=== PATIENT | female | born 1975 | race Hispanic/Latino ===

== ENCOUNTER 2020-04-10 13:29 | Outpatient (CLI) | payer OTHER ==
--- NOTE | 2020-04-10 15:18 | MRI ---
Exam: MRI cervical spine without contrast HISTORY: Cervical radiculopathy. Left shoulder pain for years. Associated tingling and numbness. . COMPARISON: None FINDINGS: Note is made of a partially empty sella. Visualized brain parenchyma, cervicomedullary junction, cervical cord and the upper thoracic cord are normal size and signal intensity. Appropriate T1 marrow signal intensity of the cervical vertebra. Cervical spine vertebral body height is maintained. No fracture. There is straightening of normal cervical lordosis. There is no significant STIR hyperintensity to suggest vertebral body edema or ligamentous injury. Spondylolisthesis: 1 mm of retrolisthesis of C4 upon C5. C2-C3: Adequate disc hydration. No posterior disc abnormality. No significant central canal stenosis. Patent bilateral neural foramina. C3-C4: Adequate disc hydration. Minimal broad-based disc bulge abuts the thecal sac. Subarachnoid spa ce is maintained. No significant central canal stenosis. Patent bilateral neural foramina. C4-C5: Disc desiccation with mild loss of disc space height. There is a broad-based disc osteophyte c omplex which effaces the subarachnoid space. There is mass effect and deformity of the thoracic cord. Moderate central canal stenosis. No T2 signal abnormality in the cervical cord. Mild bilateral foraminal narrowing due to uncovertebral hypertrophy. C5-C6: Broad-based disc osteophyte complex with central disc herniation. There is mass effect upon th e cervical cord. Mild to moderate central canal stenosis. No cord signal abnormality. Mild bilateral neural foraminal narrowing. C6-C7: No posterior disc abnormality. No significant central canal stenosis or significant neural for aminal narrowing. C7-T1: No posterior disc abnormality. No significant central canal stenosis or significant neural for aminal narrowing. IMPRESSION: Degenerative changes of the cervical spine as detailed above. Transcribed Date/Time: 04/10/2020 5:05 PM
--- NOTE | 2020-04-10 15:30 | RAD ---
Cervical spine 3 views: 04/10/2020 HISTORY: Left shoulder pain, numbness and tingling FINDINGS: On the lateral neutral examination there is mild posterior osteophyte at C4-5. Mild disc sp nick narrowing at C4-5 and C5-6. Flexion imaging demonstrates no significant anterolisthesis or retrolisthesis. On the extension imaging there is mild retrolisthesis measuring 2-3 mm at C3-4 and 3- 4 mm at C4-5. IMPRESSION: Degenerative changes as above.
== END 2020-04-10 13:30 | disposition home or self-care (01) ==
LOC: SCSMRI 13:29
PROVIDERS: ATTEND Neurological Surgery
DX: M47.22 Other spondylosis with radiculopathy, cervical region (principal)
CPT/HCPCS: 72040; 72141